=== PATIENT | female | born 1985 | race Caucasian/White ===

== ENCOUNTER → 2017-04-26 | Outpatient (CLI) | payer BC ==
--- NOTE | 2017-04-26 15:57 | Diagnostic Imaging Report ---
INDICATION: survey. TECHNIQUE: Multiple real-time grayscale images were obtained over the gravid uterus. COMPARISON: None. FINDINGS: heart rate is 144 beats per minute. The placenta is posterior. No placenta previa. The amniotic fluid appears adequate. No hydronephrosis or cystic mass at the level of the kidneys is seen. The intracranial structures are not well seen. The spine appears unremarkable. The stomach is visualized. The bladder is also visualized. The cord insertion, the four-chamber view and the three-vessel cord are not well seen. Biometrical measurements are as follows: Biparietal 4.59 cm, age 20 weeks 0 days. Head circumference 17.87 cm, age 20 weeks 3 days. Abdominal circumference 15.04 cm, age 20 weeks 2 days. Femur length 3.32 cm, age 20 weeks 3 days. Sonographic estimate age: 20 weeks 2 days. Sonographic estimated date of delivery: 09-11-17. Estimated Weight: 346 gm (+/- 51 gm). LMP percentile: 72%. heart rate: 156 beats per minute. number: 1 of 1. IMPRESSION: The intracranial structures, cord insertion, four-chamber view and three-vessel cord are not well seen due to position. Followup within 2 weeks is suggested to reevaluate. Dictated by: Dictated on workstation # [id number]
== END ==
LOC: RAD 10:17
PROVIDERS: ATTEND Obstetrics & Gynecology
DX: Z36.87 Encounter for antenatal screening for uncertain dates (principal); Z3A.20 20 weeks gestation of pregnancy
CPT/HCPCS: 76805

== ENCOUNTER → 2017-06-07 | Outpatient (CLI) | payer BC ==
--- NOTE | 2017-06-07 22:13 | Diagnostic Imaging Report ---
INDICATION: Followup fetus TECHNIQUE: Multiple real-time grayscale images were obtained over the gravid uterus. COMPARISON: 04/26/2017 FINDINGS: The prior exam of 04/26/2017 noted a single live fetus approximately 20 weeks 2 days gestation plus or minus 1.5 weeks. The fetus is again identified on this exam. The fetus is in breech presentation. heart motion was noted and a rate of 143 bpm was recorded. There were no abnormalities identified although the cord insertion was not well visualized. The growth parameters were not obtained for this study. The amniotic fluid volume is within normal limits. The placenta is posterior and there is no previa. IMPRESSION: 1. There is a single live fetus in breech presentation approximately 26 weeks 2 days gestation, plus or minus 2.0 weeks. The EDC remains 09/11/2017. There were no abnormalities identified although the cord insertion was not well visualized. 3. The growth parameters were not obtained for this study. Dictated by: Dictated on workstation # [id number]
== END ==
LOC: RAD 10:10
PROVIDERS: ATTEND Obstetrics & Gynecology
DX: Z34.92 Encounter for supervision of normal pregnancy, unspecified, second trimester (principal); Z3A.26 26 weeks gestation of pregnancy
CPT/HCPCS: 76816

== ENCOUNTER 2017-07-08 11:53 | Outpatient (CLI) | payer BC ==
[2017-07-08 12:10] VITALS: BP 136/71
[2017-07-08] MEDS ORDERED: PNV1TABL81 PO (13:49)
--- NOTE | 2017-07-08 14:00 | Diagnostic Imaging Report ---
US LIMITED [id number] Technique: Transabdominal sonographic imaging of the gravid uterus was performed. Indication: Abdominal pain after fall on ice earlier this morning. Comparison: None available. Findings: There is a single live intrauterine with heart rate of 150 beats per minute. The fetus is in cephalic presentation. The cervix is closed and measures 4 cm in length. Placenta is posterior in location . There is no evidence of abruption. MEERA is normal at 8.8 cm. Impression: 1. Single live intrauterine with normal amniotic fluid volume and normal appearance of the placenta. Dictated by: Dictated on workstation # [id number]
--- NOTE | 2017-07-14 15:09 | Physician Query-Final Dx ---
MAVIS SOLIS 07/14/17 1509: Clinic Account Progress/Dx Physician Query: Please give diagnosis Date of Service Jul 08, 2017 at 11:53 ISHAN ROJAS DO 07/14/17 1744: Clinic Account Progress/Dx DIAGNOSIS: Diagnosis 31 week IUP Fall on abdomen, trauma in [facility]AVIS SOLIS Jul 14, 2017 15:09 ISHAN ROJAS DO Jul 14, 2017 17:44
== END 2017-07-08 14:00 | disposition home or self-care (01) ==
LOC: WSo 11:53 → LDRP 11:53 → WSo 14:00
PROVIDERS: ATTEND Obstetrics & Gynecology
DX: O9A.213 Injury, poisoning and certain other consequences of external causes complicating pregnancy, third trimester (principal); W19.XXXA Unspecified fall, initial encounter; Z3A.31 31 weeks gestation of pregnancy
CPT/HCPCS: 76815; 99213

== ENCOUNTER 2017-09-19 18:30 | Inpatient (IN) | payer BC ==
[~2017-09-19] VITALS: Ht 185.4 cm; Wt 146.5 kg
[2017-09-19] VITALS (11 sets, daily range): BP systolic 106–172; BP diastolic 53–87
[~2017-09-19 18:30] MED LIST: PNV1TABL81 PO
[2017-09-19] MEDS ORDERED: NS IV 500 ML 500 ML IV SCH (18:45)
[2017-09-19] MEDS ORDERED: MISOPROSTOL 100 MCG (CYTOTEC) TAB PO ONE ×2 (19:15→23:15)
[2017-09-19 19:27] LABS: BASOPHILS % (AUTO) 0 % (0-10); EOSINOPHILS % (AUTO) 0 % (0-10); HEMATOCRIT 39 % (35-52); HEMOGLOBIN 13.7 G/DL (11.5-16.0); LYMPHOCYTES # (AUTO) 1.4 X 10^3 (1.0-4.0); LYMPHOCYTES % (AUTO) 15 % (12-44); MEAN CORPUSCULAR HEMOGLOBIN 34 PG (25-34); MEAN CORPUSCULAR HGB CONC 35 G/DL (32-36); MEAN CORPUSCULAR VOLUME 97 FL (80-99); MEAN PLATELET VOLUME 11.1 FL (7.4-10.4); MONOCYTES # (AUTO) 0.7 X 10^3 (0.0-1.0); MONOCYTES % (AUTO) 7 % (0-12); NEUTROPHILS # (AUTO) 7.4 X 10^3 (1.8-7.8); NEUTROPHILS % (AUTO) 78 % (42-75); PLATELET COUNT 148 10^3/uL (130-400); RED BLOOD COUNT 4.08 10^6/uL (4.35-5.85); RED CELL DISTRIBUTION WIDTH 12.9 % (10.0-14.5); WHITE BLOOD COUNT 9.4 10^3/uL (4.3-11.0)
[2017-09-19 19:50] LABS: ALANINE AMINOTRANSFERASE 24 U/L (0-55); ALBUMIN 3.4 GM/DL (3.2-4.5); ALKALINE PHOSPHATASE 116 U/L (40-136); BILIRUBIN,TOTAL 0.3 MG/DL (0.1-1.0); BUN/CREATININE RATIO 14; CALCIUM 9.2 MG/DL (8.5-10.1); CARBON DIOXIDE 20 MMOL/L (21-32); CHLORIDE 107 MMOL/L (98-107); CREATININE SERUM 0.65 MG/DL (0.60-1.30); GFR ESTIMATED > 60; GLUCOSE 86 MG/DL (70-105); POTASSIUM 3.9 MMOL/L (3.6-5.0); SODIUM 138 MMOL/L (135-145); TOTAL PROTEIN 6.4 GM/DL (6.4-8.2); URIC ACID 4.1 MG/DL (2.6-7.2)
[2017-09-19] MEDS: D5 LR IV SOLUTION 1,000 ML IV SCH (20:12)
[2017-09-19 20:44] LABS: BACTERIA,URINE TRACE /HPF; BILIRUBIN,URINE NEGATIVE (NEGATIVE); CLARITY,URINE CLEAR; COLOR,URINE YELLOW; GLUCOSE, URINE (UA) NEGATIVE (NEGATIVE); KETONES,URINE NEGATIVE (NEGATIVE); LEUKOCYTE ESTERASE ,URINE NEGATIVE (NEGATIVE); NITRITE,URINE NEGATIVE (NEGATIVE); PH,URINE 7 (5-9); PROTEIN,URINE NEGATIVE (NEGATIVE); RBC,URINE RARE /HPF; UROBILINOGEN,URINE NORMAL (NORMAL)
[2017-09-20] VITALS (68 sets, daily range): BP systolic 106–164; BP diastolic 51–86
[2017-09-20] MEDS ORDERED: MISOPROSTOL 100 MCG (CYTOTEC) TAB ONE ×2 (03:54→08:22)
[2017-09-20] MEDS: D5 LR IV SOLUTION 1,000 ML IV SCH ×3 (04:04→19:45)
[2017-09-20] MEDS ORDERED: MISOPROSTOL 100 MCG (CYTOTEC) TAB PO NR (08:15)
[2017-09-20] MEDS ORDERED: OXYTOCIN/NORMAL SALINE 500 ML IV SCH (08:20)
--- NOTE | 2017-09-20 08:42 | History & Physical-OB ---
OB - Chief Complaint & HPI Date/Time Date of Admission: Date of Admission: Sep 19, 2017 at 6:30 pm Time Seen by Provider: 08:10 Chief Complaint/History OB-Reason for Admission/Chief: Induction of Labor Hx : 1 Hx Para: 0 Expected Date of Delivery: Sep 14, 2017 Gestational Age in Weeks: 40 Gestational Age in Days: 6 Indication for induction: post dates Admission Nurse Assessment Rev: Yes History of Labs AB pos Antibody neg RI RPR NR HBsAg NR HIV NR GC neg GBS neg Allergies and Home Medications Allergies Coded Allergies: clarithromycin (Verified Allergy, Unknown, hives, 07/08/17) Home Medications Pnv No.122/Iron/Folic Acid 1 Each Tablet, 1 EACH PO DAILY, (Reported) Patient Home Medication List Home Medication List Reviewed: Yes OB - History Hx of Present Care: Yes Ultrasounds: Normal mid trimester US Obstetrical Complications: Gestational Hypertension (BP 140s/90s at yesterdays visit) Medical Complications: None Patient Past Medical History n/a Social History/Family History Recent Infectious Disease Expo: No Alcohol Use: Denies Use Recreational Drug Use: No Immunizations Date of Influenza Vaccine: Apr 27, 2017 OB - Admission Exam Physical Exam Vitals: Vital Signs 09/19/17 09/20/17 19:55 07:30 Temp 98.5 Pulse 90 Resp 18 B/P (MAP) 116/66 (83) HEENT: NCAT Heart: Rhythm Normal Lungs: Clear Abdomen: Gravid Extremities: Normal Reflexes: Normal Cervical Dilatation: 3cm Effacement: 75% Station: -3 Membranes: Intact Heart Rate: 130's Accelerations: Accelerations Present Decelerations: No Decelerations Short Term Variability: Present Senior Living Variability: Average (6-25) Contractions on Admission: 6-10 Minutes Apart Intensity: Mild Cruz Scoring Tool (Modified) Dilation (cm): 3-4cm (2) Effacement (%): 51-79% (2) Descent/Station: -3 (0) Cervix Consistency: Soft (2) Cervix Position: Anterior (2) Subtract 1 point for: Nulliparity (-1) Cruz Score: 7 Labs Laboratory Tests Test 09/19/17 19:10 09/19/17 20:26 Range/Units White Blood Count 9.4 4.3-11.0 10^3/uL Red Blood Count 4.08 L 4.35-5.85 10^6/uL Hemoglobin 13.7 11.5-16.0 G/DL Hematocrit 39 35-52 % Mean Corpuscular Volume 97 80-99 FL Mean Corpuscular Hemoglobin 34 25-34 PG Mean Corpuscular Hemoglobin Concent 35 32-36 G/DL Red Cell Distribution Width 12.9 10.0-14.5 % Platelet Count 148 130-400 10^3/uL Mean Platelet Volume 11.1 H 7.4-10.4 FL Neutrophils (%) (Auto) 78 H 42-75 % Lymphocytes (%) (Auto) 15 12-44 % Monocytes (%) (Auto) 7 0-12 % Eosinophils (%) (Auto) 0 0-10 % Basophils (%) (Auto) 0 0-10 % Neutrophils # (Auto) 7.4 1.8-7.8 X 10^3 Lymphocytes # (Auto) 1.4 1.0-4.0 X 10^3 Monocytes # (Auto) 0.7 0.0-1.0 X 10^3 Eosinophils # (Auto) 0.0 0.0-0.3 10^3/uL Basophils # (Auto) 0.0 0.0-0.1 10^3/uL Sodium Level 138 135-145 MMOL/L Potassium Level 3.9 3.6-5.0 MMOL/L Chloride Level 107 98-107 MMOL/L Carbon Dioxide Level 20 L 21-32 MMOL/L Anion Gap 11 5-14 MMOL/L Blood Urea Nitrogen 9 7-18 MG/DL Creatinine 0.65 0.60-1.30 MG/DL Estimat Glomerular Filtration Rate > 60 BUN/Creatinine Ratio 14 Glucose Level 86 70-105 MG/DL Uric Acid 4.1 2.6-7.2 MG/DL Calcium Level 9.2 8.5-10.1 MG/DL Total Bilirubin 0.3 0.1-1.0 MG/DL Aspartate Amino Transf (AST/SGOT) 20 5-34 U/L Alanine Aminotransferase (ALT/SGPT) 24 0-55 U/L Alkaline Phosphatase 116 40-136 U/L Total Protein 6.4 6.4-8.2 GM/DL Albumin 3.4 3.2-4.5 GM/DL Urine Color YELLOW Urine Clarity CLEAR Urine pH 7 5-9 Urine Specific [place] 1.015 L 1.016-1.022 Urine Protein NEGATIVE NEGATIVE Urine Glucose (UA) NEGATIVE NEGATIVE Urine Ketones NEGATIVE NEGATIVE Urine Nitrite NEGATIVE NEGATIVE Urine Bilirubin NEGATIVE NEGATIVE Urine Urobilinogen NORMAL NORMAL MG/DL Urine Leukocyte Esterase NEGATIVE NEGATIVE Urine RBC (Auto) 1+ H NEGATIVE Urine RBC RARE /HPF Urine WBC NONE /HPF Urine Squamous Epithelial Cells 2-5 /HPF Urine Crystals NONE /LPF Urine Bacteria TRACE /HPF Urine Casts NONE /LPF Urine Mucus NEGATIVE /LPF Urine Culture Indicated NO OB - Assessment/Plan/Diagnosis Assessment Assessment: induction of labor Admission Dx 32 yo @ 40.6 Postdates GHTN GBS neg Admission Status: Inpatient Order (span 2 midnights) Reason for Inpatient Admission: 32 yo @ 40.6 Postdates GHTN GBS neg Plan Plan: Induction Induction Method: per Misoprostol Protocol ISHAN ROJAS DO Sep 20, 2017 8:42 am
[2017-09-21] VITALS (39 sets, daily range): BP systolic 97–155; BP diastolic 53–83
[2017-09-21] MEDS: D5 LR IV SOLUTION 1,000 ML IV SCH ×2 (03:41→20:00)
[2017-09-21] MEDS ORDERED: CITRIC ACID/SOB CIT (BICITRA) 30 ML UDC PO ONE ×2 (08:45→09:15)
[2017-09-21] MEDS ORDERED: METOCLOPRAMIDE INJ 10 MG/2 ML (REGLAN) IV ONE ×2 (08:45→09:15)
[2017-09-21] MEDS ORDERED: FAMOTIDINE 20MG/2ML IV (PEPCID) IV ONE ×2 (08:45→09:15)
[2017-09-21] MEDS ORDERED: ceFAZolin 2 GM IV Premixed 50 ML IV ONE (08:45)
[2017-09-21] MEDS ORDERED: LACTATED RINGERS 1,000 ML IV PRN (08:45)
--- NOTE | 2017-09-21 08:50 | Progress Note-Standard ---
Standard Progress Note Progress Notes/Assess & Plan Date Seen by Provider: Sep 21, 2017 Time Seen by Provider: 08:15 Progress/Assessment & Plan I came in this morning to evaluate this patient who has been undergoing induction since TuesdaySeptember 19. The patient was brought in for induction due to postdates and gestational hypertension in the office that day. Cytotec was used as my induction mastoid overnight the patient was 2 cm dilated at admission the head was -2 to -3 station. Overnight Cytotec dosing left the patient 2-3 cm dilated and Pitocin was started the next morning due to ballotable presenting part. Throughout the day Pitocin augmentation was achieved in a regular contraction pattern was obtained. Artificial rupture membranes was performed yesterday afternoon and a scalp electrode was placed. An IUPC catheter was also placed last evening to continue to monitor strength of contractions and adequacy of labor. Despite adequacy of labor minimal to no cervical dilation was noted as well as no descent of the head into the pelvis. There were also several episodes of variable and late decelerations throughout the evening Pitocin was stopped at approximately 4 a.m. This morning I come in to discuss the patient starting the Pitocin again, however, the risk with this would involve another episode of intolerance of labor and potentially an emergency due to her remoteness from delivery. I also discussed the patient leaving the Pitocin off and proceeding with at the next earliest schedule convenience. After discussing with her family and after risk of both were discussed the patient in detail she is decided to proceed with . Risk of this procedure was discussed the patient again in detail with her family present after all of her questions are answered consent was obtained and we will proceed as soon as operating room staff is available ISHAN ROJAS DO Sep 21, 2017 8:50 am
[2017-09-21] MEDS ORDERED: LACTATED RINGERS 1,000 ML IV SCH ×2 (09:04)
[2017-09-21] MEDS ORDERED: fentaNYL INJECTION 100 MCG/2 ML AMP ONE (10:35)
[2017-09-21] MEDS ORDERED: PHENYLEPHRINE 100 MCG/ML 10 ML (ANESTHESIA) SYR ONE (10:36)
[2017-09-21] MEDS ORDERED: OXYTOCIN/NORMAL SALINE 1,000 ML IV ONE (10:36)
[2017-09-21] MEDS: CATHETER FLUSH 10 ML SYR IV SCH ×2 (11:37→12:26)
[2017-09-21] MEDS ORDERED: OXYTOCIN/NORMAL SALINE 500 ML IV SCH (12:09)
--- NOTE | 2017-09-21 12:12 | Discharge Inst-Women's Service ---
Discharge Inst-Women's Serv Depart Medication/Instructions New, Converted or Re-Newed RX: RX on Chart Consults/Follow Up Additional Follow Up: Yes Orders/Referrals Dr. Frost in 7-10 days and in 6 weeks Activity Activity: Activity as Tolerated Driving Instructions: No Driving for 1 Week NO SMOKING: NO SMOKING Nothing Inside Vagina: No Douching, No [place], No Tampons Diet Discharge Diet: No Restrictions Symptoms to Report to : Bleeding Excessive, Pain Increased, Fever Over 101 Degrees F, Vaginal Bleeding Increase, Questions/Concerns For Any Problems or Questions: Contact Your Physician Skin/Wound Care Infection Signs and Symptoms: Increased Redness, Foul Odor of Wound, Increased Drainage, Skin Itchy or Has a Rash, Increased Swelling, Temperature Above 101 F Operative Area Clean and Dry: Keep Incision Clean/Dry Stitches/Anh/Dermabond: Dermabond, Care of Stitches Bathing Instructions: ISHAN Mckenna DO Sep 21, 2017 12:12
[2017-09-21] MEDS ORDERED: ONDANSETRON 4 MG/2 ML (SDV) Z0FRAN IVP PRN (12:15)
[2017-09-21] MEDS ORDERED: HYDROmorphone (DILAUDID) 2 MG/ML VIAL IVP PRN (12:15)
[2017-09-21] MEDS ORDERED: MEASLES,MUMPS,RUBELLA 1 EA INJ SC SCH (12:15)
[2017-09-21] MEDS ORDERED: IBUPROFEN 600 MG (MOTRIN) TAB PO SCH (12:15)
[2017-09-21] MEDS ORDERED: TETANUS,DIPTH,PERTUSS P/F (BOOSTRIX) 0.5 ML VIAL IM SCH (12:15)
[2017-09-21] MEDS ORDERED: KETOROLAC 30 MG/ML VIAL ONE (12:17)
[2017-09-21] MEDS ORDERED: IBUP-1773 PO (12:22)
[2017-09-21] MEDS ORDERED: DOCU100C37 PO (12:22)
[2017-09-21] MEDS ORDERED: ACHD5005 PO (12:22)
[2017-09-21] MEDS: KETOROLAC 30 MG/ML VIAL IVP SCH ×2 (12:26→17:30)
[2017-09-21] MEDS ORDERED: CATHETER FLUSH 10 ML SYR IV SCH (14:00)
[2017-09-21] MEDS: HYDROcodone/APAP 5 MG/325 MG (LORTAB) TAB PO PRN ×2 (14:35→18:44)
--- NOTE | 2017-09-21 19:28 | OPERATIVE REPORT ---
DATE OF SERVICE: PREOPERATIVE DIAGNOSES: 1. A 32-year-old G1, P0 at 41 weeks' gestation. 2. intolerance of labor. 3. Cephalopelvic disproportion. POSTOPERATIVE DIAGNOSES: 1. A 32-year-old G1, P0 at 41 weeks' gestation. 2. intolerance of labor. 3. Cephalopelvic disproportion. PROCEDURE: Primary low transverse section. SURGEON: Nilton Rojas DO ANESTHESIA: Spinal. ESTIMATED BLOOD LOSS: 500 mL. URINE OUTPUT: 500 mL clear at the end of the procedure. FLUIDS: 1600 mL of lactated Ringer's solution. FINDINGS: Live male infant weighing 8 pounds 15 ounces, Apgars of 8 and 9. Grossly normal-appearing bilateral fallopian tubes and ovaries and nuchal cord x2. SPECIMEN SENT: Placenta. INDICATIONS FOR PROCEDURE: This 32-year-old female was induced for postdates and gestational hypertension on Tuesday evening. Overnight, she received Cytotec. Please see her preoperative note for complete details pertaining to the patient's induction course as well as plan of care and indication for . OPERATIVE REPORT IN DETAIL: The patient was then taken to the operating room where spinal analgesia was found to be adequate. She was placed in the supine position with leftward tilt, prepped and draped in normal sterile fashion. Anesthesia was tested and timeout was performed. After this, a Pfannenstiel skin incision was made with a knife and carried down the underlying fascia using Bovie cautery. The fascial incision was extended laterally using Bovie cautery. The superior aspect of the fascial incision was then grasped with Penny clamps, tented up and dissected off the underlying rectus muscles. The inferior aspect of the fascial incision was then grasped with Penny clamps, tented up and dissected off the underlying rectus muscles. The rectus muscles were then dissected down the midline using Davis scissors, which exposed the peritoneum which were entered bluntly and extended using blunt traction. I then placed Danial ring retractor in the peritoneal incision, which offered excellent lateral sidewall retraction. I then identified the lower uterine segment, found to be thinned out. I made a low transverse incision to the vesicouterine peritoneum and bluntly dissected this off the lower uterine segment and then proceeded with myotomy until membranes were visualized and encountered, at which point I extended the uterine incision laterally and superiorly using bandage scissors. The infant was found in the vertex presentation, right occiput anterior. The 's head was elevated up to the incision where it was delivered through the incision. The nares and oropharynx were bulb suctioned and there was a nuchal cord reduced x2. Anterior and posterior shoulders were delivered and the infant was then brought out to the operative field where the cord was doubly clamped and cut, and was handed off to Dr. Campos who was present for delivery. Cord blood was collected. A 3-vessel cord with intact placenta was delivered spontaneously thereafter. IV Pitocin was initiated to facilitate uterine contraction. Uterine fundus became firmer with bimanual massage. The uterus was then exteriorized and cleared of all endometrial clots and debris. I then closed the uterine incision using 0 Vicryl suture in running locked fashion. Second layer of imbricating 0 Monocryl was placed. Excellent hemostasis was noted after doing this. I then placed the uterus back within the pelvis and copiously irrigated the pelvis using normal saline. Once again, there was no active bleeding noted from any of my dissection planes. I then proceeded with closing the peritoneum using 3-0 Vicryl suture in running fashion. The rectus muscle was reapproximated using 3-0 Vicryl suture in interrupted fashion. The fascia was reapproximated using 0 Vicryl suture in running fashion. The subcutaneous tissue was reapproximated using 3-0 plain in interrupted subcutaneous stitch and the skin was reapproximated using 4-0 Monocryl in a running subcuticular. Dermabond was applied to incision and sterile dressings were adhesed with a white tape. The patient tolerated the procedure well and sent to recovery area in stable condition. Lap and sponge counts were correct at the end of the procedure. Instrument counts were correct as well. A 2 grams of Ancef was given preoperatively for infection prophylaxis. Job ID: [id number] DocumentID: [id number] Dictated Date: 09/21/2017 12:17:19 [employer] Crew Officer Date: 09/21/2017 19:27:38 Dictated By: NILTON ROJAS DO
[2017-09-21] MEDS: DOCUSATE SODIUM 100 MG (COLACE) CAP PO SCH (21:39)
[2017-09-22 00:52] VITALS: BP 133/80
[2017-09-22] MEDS: KETOROLAC 30 MG/ML VIAL IVP SCH ×2 (00:52→06:31)
[2017-09-22] MEDS: HYDROcodone/APAP 5 MG/325 MG (LORTAB) TAB PO PRN ×4 (01:26→21:54)
[2017-09-22 05:00] VITALS: BP 137/74
[2017-09-22 05:19] LABS: BASOPHILS % (AUTO) 0 % (0-10); EOSINOPHILS % (AUTO) 0 % (0-10); HEMATOCRIT 32 % (35-52); HEMOGLOBIN 10.9 G/DL (11.5-16.0); LYMPHOCYTES # (AUTO) 1.3 X 10^3 (1.0-4.0); LYMPHOCYTES % (AUTO) 11 % (12-44); MEAN CORPUSCULAR HEMOGLOBIN 33 PG (25-34); MEAN CORPUSCULAR HGB CONC 34 G/DL (32-36); MEAN CORPUSCULAR VOLUME 98 FL (80-99); MEAN PLATELET VOLUME 10.8 FL (7.4-10.4); MONOCYTES # (AUTO) 0.9 X 10^3 (0.0-1.0); MONOCYTES % (AUTO) 8 % (0-12); NEUTROPHILS # (AUTO) 9.2 X 10^3 (1.8-7.8); NEUTROPHILS % (AUTO) 81 % (42-75); PLATELET COUNT 103 10^3/uL (130-400); RED BLOOD COUNT 3.26 10^6/uL (4.35-5.85); WHITE BLOOD COUNT 11.4 10^3/uL (4.3-11.0)
[2017-09-22] MEDS ORDERED: IBUPROFEN 600 MG (MOTRIN) TAB PO ONE (06:10)
[2017-09-22 08:30] VITALS: BP 124/73
[2017-09-22] MEDS: DOCUSATE SODIUM 100 MG (COLACE) CAP PO SCH ×2 (08:46→21:54)
--- NOTE | 2017-09-22 09:13 | Anesthesia-Regional Post-Op ---
Regional Patient Condition Mental Status: Alert, Oriented x3 Circulation: Same as Pre-Op Headache: Absent Sensation: Full Recovery Motor Block: Absent Post Op Complications Complications None Follow Up Care/Instructions Patient Instructions None needed. Anesthesia/Patient Condition Patient is doing well, no complaints, stable vital signs, no apparent adverse anesthesia problems. No complications reported per nursing. BERNARD SCHROEDER CRNA Sep 22, 2017 09:13
[2017-09-22 12:00] VITALS: BP 129/80
[2017-09-22] MEDS: IBUPROFEN 600 MG (MOTRIN) TAB PO SCH ×2 (12:10→17:32)
--- NOTE | 2017-09-22 13:13 | Postpartum Progress Note ---
Note Note Day # 1 Subjective: Patient is without complaints. Ambulating, voiding. Tolerating a regular diet without nausea or vomiting. Normal lochia. Pain is well controlled with oral pain medications. [] feeding. [] Objective: Vital Sign - Last 24 Hours 09/21/17 09/21/17 09/21/17 09/22/17 14:30 17:20 21:00 00:52 Temp 97.0 96.8 97.2 97.4 Pulse 68 70 105 98 Resp 18 B/P (MAP) 101/65 (77) 120/75 (90) 133/76 (95) 133/80 (97) Pulse Ox 99 98 98 97 O2 Delivery Room Air Room Air Room Air Room Air 09/22/17 09/22/17 09/22/17 05:00 08:30 12:00 Temp 97.2 98.5 97.7 Pulse 94 92 118 Resp 18 B/P (MAP) 137/74 (95) 124/73 (90) 129/80 (96) Pulse Ox 96 99 99 O2 Delivery Room Air Room Air Room Air Intake and Output 09/21/17 09/21/17 09/22/17 15:00 23:00 07:00 Intake Total 50 ml 2900 ml 2550 ml Output Total 1000 ml 0 ml 2750 ml Balance -950 ml 2900 ml -200 ml Laboratory Tests Test 09/22/17 05:00 Range/Units White Blood Count 11.4 H 4.3-11.0 10^3/uL Red Blood Count 3.26 L 4.35-5.85 10^6/uL Hemoglobin 10.9 #L 11.5-16.0 G/DL Hematocrit 32 L 35-52 % Mean Corpuscular Volume 98 80-99 FL Mean Corpuscular Hemoglobin 33 25-34 PG Mean Corpuscular Hemoglobin Concent 34 32-36 G/DL Red Cell Distribution Width 13.0 10.0-14.5 % Platelet Count 103 L 130-400 10^3/uL Mean Platelet Volume 10.8 H 7.4-10.4 FL Neutrophils (%) (Auto) 81 H 42-75 % Lymphocytes (%) (Auto) 11 L 12-44 % Monocytes (%) (Auto) 8 0-12 % Eosinophils (%) (Auto) 0 0-10 % Basophils (%) (Auto) 0 0-10 % Neutrophils # (Auto) 9.2 H 1.8-7.8 X 10^3 Lymphocytes # (Auto) 1.3 1.0-4.0 X 10^3 Monocytes # (Auto) 0.9 0.0-1.0 X 10^3 Eosinophils # (Auto) 0.0 0.0-0.3 10^3/uL Basophils # (Auto) 0.0 0.0-0.1 10^3/uL Physical Exam: General - Alert and oriented, no apparent distress Abdomen - Soft, appropriately tender to palpation, non-distended, fundus firm at umbilicus Extremities - no edema, negative Adrianne's bilaterally Incision- c/d/i Assessment: POD 1 PLTCS Acute blood loss anemia Plan: Routine care. Encourage breast feeding. Encourage ambulation. Ferrous sulfate supplementation. Plan for discharge tomorrow Vitals - Labs Vital Signs - I&O Vital Signs Date Time Temp Pulse Resp B/P (MAP) Pulse Ox O2 Delivery O2 Flow Rate FiO2 09/22/17 12:00 97.7 118 18 129/80 (96) 99 Room Air 09/22/17 08:30 98.5 92 18 124/73 (90) 99 Room Air 09/22/17 05:00 97.2 94 18 137/74 (95) 96 Room Air 09/22/17 00:52 97.4 98 18 133/80 (97) 97 Room Air 09/21/17 21:00 97.2 105 18 133/76 (95) 98 Room Air 09/21/17 17:20 96.8 70 18 120/75 (90) 98 Room Air 09/21/17 14:30 97.0 68 18 101/65 (77) 99 Room Air I & O 09/22/17 07:00 Intake Total 5500 ml Output Total 3750 ml Balance 1750 ml Labs Laboratory Tests 09/22/17 05:00: White Blood Count 11.4H, Red Blood Count 3.26L, Hemoglobin 10.9#L, Hematocrit 32L, Mean Corpuscular Volume 98, Mean Corpuscular Hemoglobin 33, Mean Corpuscular Hemoglobin Concent 34, Red Cell Distribution Width 13.0, Platelet Count 103L, Mean Platelet Volume 10.8H, Neutrophils (%) (Auto) 81H, Lymphocytes (%) (Auto) 11L, Monocytes (%) (Auto) 8, Eosinophils (%) (Auto) 0, Basophils (%) (Auto) 0, Neutrophils # (Auto) 9.2H, Lymphocytes # (Auto) 1.3, Monocytes # (Auto ) 0.9, Eosinophils # (Auto) 0.0, Basophils # (Auto) 0.0 ISHAN ROJAS DO Sep 22, 2017 1:13 pm
[2017-09-22 17:30] VITALS: BP 131/72
[2017-09-22 21:00] VITALS: BP 137/77
[2017-09-23 00:23] VITALS: BP 104/52
[2017-09-23] MEDS: IBUPROFEN 600 MG (MOTRIN) TAB PO SCH ×4 (00:38→18:11)
[2017-09-23 04:20] VITALS: BP 110/61
--- NOTE | 2017-09-23 06:32 | Postpartum Progress Note ---
Note Note Day # 2 Subjective: Patient is without complaints. Ambulating, voiding. Tolerating a regular diet without nausea or vomiting. Normal lochia. Pain is well controlled with oral pain medications. Objective: Vital Signs 09/21/17 09/23/17 07:00 04:20 Temp 97.7 Pulse 82 Resp 18 B/P (MAP) 110/61 (77) Pulse Ox 97 O2 Delivery Room Air O2 Flow Rate 15.00 Physical Exam: General - Alert and oriented, no apparent distress Abdomen - Soft, appropriately tender to palpation, non-distended, fundus firm at umbilicus Extremities - no edema, negative Adrianne's bilaterally Incision - c/d/i Assessment: POD 2 PLTCS Plan: Routine care. Encourage breast feeding. Encourage ambulation. Ferrous sulfate supplementation. Plan for discharge today Vitals - Labs Vital Signs - I&O Vital Signs Date Time Temp Pulse Resp B/P (MAP) Pulse Ox O2 Delivery O2 Flow Rate FiO2 09/23/17 04:20 97.7 82 18 110/61 (77) 97 Room Air 09/23/17 00:23 97.9 98 18 104/52 (69) 100 Room Air 09/22/17 21:00 97.7 113 19 137/77 (97) 96 Room Air 09/22/17 17:30 97.6 104 18 131/72 (91) 96 Room Air 09/22/17 12:00 97.7 118 18 129/80 (96) 99 Room Air 09/22/17 08:30 98.5 92 18 124/73 (90) 99 Room Air I & O 09/23/17 07:00 Intake Total 3500 ml Output Total 2400 ml Balance 1100 ml ISHAN ROJAS DO Sep 23, 2017 6:32 am
[2017-09-23 08:00] VITALS: BP 117/63
[2017-09-23] MEDS: DOCUSATE SODIUM 100 MG (COLACE) CAP PO SCH (08:48)
[2017-09-23] MEDS ORDERED: HYDROCORTISONE 1% OINT 30 GM TUBE TOP SCH (11:45)
[2017-09-23 12:00] VITALS: BP 129/76
[2017-09-23] MEDS ORDERED: HYDROCORTISONE 1% CREAM 30 GM TUBE TOP SCH (12:45)
[2017-09-23 17:00] VITALS: BP 122/73
[2017-09-23 20:56] VITALS: BP 122/73
== END 2017-09-23 20:48 | disposition home or self-care (01) | DRG 765 ==
LOC: LDRP 18:30
PROVIDERS: ADMIT Obstetrics & Gynecology; ATTEND Obstetrics & Gynecology
PROC: 3E0P7GC Introduction of Other Therapeutic Substance into Female Reproductive, Via Natural or Artificial Opening (ICD-10-PCS; 2017-09-19)
PROC: 10D00Z1 Extraction of Products of Conception, Low, Open Approach (ICD-10-PCS; principal; 2017-09-21 11:00)
DX: O13.4 Gestational [pregnancy-induced] hypertension without significant proteinuria, complicating childbirth (principal); O48.0 Post-term pregnancy; O33.9 Maternal care for disproportion, unspecified; O76 Abnormality in fetal heart rate and rhythm complicating labor and delivery; O69.81X0 Labor and delivery complicated by cord around neck, without compression, not applicable or unspecified; O90.81 Anemia of the puerperium; D62 Acute posthemorrhagic anemia; Z3A.40 40 weeks gestation of pregnancy; Z37.0 Single live birth
CPT/HCPCS: 36415; 80053; 81000; 84550; 85025; 86850; 86900; 86901; 94664

== ENCOUNTER 2019-02-10 21:38 | Emergency (ER) | payer BC | END 2019-02-10 22:58 | disposition home or self-care (01) | LOC: ER 21:38 ==

== ENCOUNTER → 2022-09-25 | Outpatient (CLI) | payer BC ==
[~2022-09-25] MED LIST changes: +ACHD5005 PO; +CEPH-507 PO; +DOCU100C37 PO; +IBUP-1773 PO
== END ==
LOC: LAB 11:50
PROVIDERS: ATTEND Midwife
DX: Z32.00 Encounter for pregnancy test, result unknown (principal)
CPT/HCPCS: 36415; 84702